=== PATIENT | male | born 1945 | race Caucasian/White ===

== ENCOUNTER 2017-05-06 10:41 | Emergency (ER) | payer BC ==
[2017-05-06 13:12] LABS: Hematocrit 42 % (42-52); Mean Corpuscular HGB Conc 34 g/dl (31-36); Mean Corpuscular Hemoglobin 31 pg (27-31); Mean Corpuscular Volume 93 fL (80-94); Mean Platelet Volume 7 um3 (7.4-10.4); Platelet Count 169 10^3/ul (150-450); Red Blood Count 4.49 10^6/ul (4.0-5.4); Red Cell Distribution Width 14 % (10.5-15); White Blood Count 5.1 10^3/ul (3.5-10.8)
[2017-05-06 13:16] LABS: ABS Basophils 0 10^3/ul (0-0.2); ABS Eosinophils 0.1 10^3/ul (0-0.6); ABS Lymphocytes 0.8 10^3/ul (1.0-4.8); ABS Monocytes 0.5 10^3/ul (0-0.8); ABS Neutrophils 3.6 10^3/ul (1.5-7.7); ABS Nucleated RBC 0 10^3/ul; Eosinophil % 1.4 % (0-6); Lymphocyte % 16.4 % (25-47); Nucleated Red Blood Cells % 0.1
--- NOTE | 2017-05-06 13:25 | RAD ---
HISTORY: Swelling and leg pain, left lower extremity COMPARISONS: None relevant TECHNIQUE: Multiple transverse and longitudinal ultrasound images were obtained of the left lower extremity from the level of the common femoral vein inferiorly through to the infrapopliteal veins using grayscale, color Doppler, and spectral Doppler imaging with and without compression and with augmentation. Comparison images were obtained of the contralateral common femoral vein. FINDINGS: VEINS: There is occlusive thrombus extending from the superior portion of the left femoral vein inferiorly into the popliteal vein, and into the calf veins. SOFT TISSUES: Unremarkable. OTHER FINDINGS: None. IMPRESSION: EXTENSIVE OCCLUSIVE THROMBUS OF THE DEEP VENOUS SYSTEM OF THE LEFT LOWER EXTREMITY
[2017-05-06 13:27] LABS: EGFR Non-African American 76.1 (>60); INR 1.25 (0.77-1.02)
[2017-05-06] MEDS ORDERED: Apixaban* 5 MG TAB PO SCH (14:00)
[2017-05-06 14:05] VITALS: BP 138/79
--- NOTE | 2017-05-07 10:26 | ED ---
Mary Ramon Gabriel, scribed for Pancho Yip MD on 05/06/17 at 1058 . Lower Extremity - HPI Summary HPI Summary: This patient is a 72 year old M presenting to [facility] with a chief complaint of left calf pain and swelling since yesterday. The patient rates the pain 2/10 in severity. Patient denies SOB and CP. Patient just flew in from [place] last night and was having LE pain in the airport yesterday. He wore compression stockings all yesterday and had pain on walking. Patient has had a DVT in the opposite leg 17 years ago that occurrured after surgery and traveled to his lung creating a PE and he was given Coumadin for this. Patient began taking ASA two days ago but is currently not on any blood thinners. - History of Current Complaint Chief Complaint: EDExtremityLower Stated Complaint: LEFT LEG SWOLLEN Time Seen by Provider: 05/06/17 10:52 Hx Obtained From: Patient Onset of Pain: Immediate Onset/Duration: Still Present Severity Initially: Mild Severity Currently: Mild Pain Intensity: 2 Pain Scale Used: 0-10 Numeric Timing: Constant Associated Signs And Symptoms: Positive: Swelling Aggravating Factor(s): Movement Able to Bear Weight: Yes - Allergies/Home Medications Allergies/Adverse Reactions: Allergies Allergy/AdvReac Type Severity Reaction Status Date / Time No Known Allergies Allergy Verified 01/18/17 09:54 PMH/Surg Hx/FS Hx/Imm Hx Endocrine/Hematology History: Denies: Hx Diabetes Cardiovascular History: Reports: Hx Deep Vein Thrombosis, Other Cardiovascular Problems/Disorders - PE Denies: Hx Hypertension, Hx Pacemaker/ICD History: Denies: Hx Renal Disease Musculoskeletal History: Denies: Hx Rheumatoid Arthritis, Hx Osteoporosis Sensory History: Denies: Hx Hearing Aid EENT History: Denies: Hx Deafness, Hx Hearing Problem Neurological History: Denies: Hx CVA, Hx Dementia Psychiatric History: Denies: Hx Panic Disorder - Surgical History Surgery Procedure, Year, and Place: TONSILS. PULMONARY EMBOLISM 1999 Infectious Disease History: No Infectious Disease History: Denies: Traveled Outside the [place] in Last 30 Days Review of Systems Negative: Chest Pain Negative: Shortness Of Breath Positive: Edema, Other - LE pain All Other Systems Reviewed And Are Negative: Yes Physical Exam - Summary Physical Exam Summary: VITAL SIGNS: Reviewed. GENERAL: Patient is a well-developed and nourished male who is lying comfortable in the stretcher. Patient is not in any acute respiratory distress. HEAD AND FACE: No signs of trauma. No ecchymosis, hematomas or skull depressions. No sinus tenderness. EYES: PERRLA, EOMI x 2, No injected conjunctiva, no nystagmus. EARS: Hearing grossly intact. Ear canals and tympanic membranes are within normal limits. MOUTH: Oropharynx within normal limits. NECK: Supple, trachea is midline, no adenopathy, no JVD, no carotid bruit, no c- spine tenderness, neck with full ROM. CHEST: Symmetric, no tenderness at palpation LUNGS: Clear to auscultation bilaterally. No wheezing or crackles. CVS: Regular rate and rhythm, S1 and S2 present, no murmurs or gallops appreciated. ABDOMEN: Soft, non-tender. No signs of distention. No rebound no guarding, and no masses palpated. Bowel sounds are normal. EXTREMITIES: LLE swelling and tenderness in calf, good capillary refill and good pulses NEURO: Alert and oriented x 3. No acute neurological deficits. Speech is normal and follows commands. SKIN: Dry and warm Triage Information Reviewed: Yes Vital Signs On Initial Exam: Initial Vitals Temp Pulse Resp BP Pulse Ox 98.3 F 83 20 141/93 100 05/06/17 10:46 05/06/17 10:46 05/06/17 10:46 05/06/17 10:46 05/06/17 10:46 Vital Signs Reviewed: Yes Diagnostics - Vital Signs Vital Signs Temp Pulse Resp BP Pulse Ox 05/06/17 10:46 98.3 F 83 20 141/93 100 - Laboratory Lab Results: Lab Results 05/06/17 05/06/17 05/06/17 Range/Units 12:56 12:56 12:56 WBC 5.1 (3.5-10.8) 10^3/ul RBC 4.49 (4.0-5.4) 10^6/ul Hgb 14.0 (14.0-18.0) g/dl Hct 42 (42-52) % MCV 93 (80-94) fL MCH 31 (27-31) pg MCHC 34 (31-36) g/dl RDW 14 (10.5-15) % Plt Count 169 (150-450) 10^3/ul MPV 7 L (7.4-10.4) um3 Neut % (Auto) 72.3 (38-83) % Lymph % (Auto) 16.4 L (25-47) % Franklin % (Auto) 9.4 H (1-9) % Eos % (Auto) 1.4 (0-6) % Baso % (Auto) 0.5 (0-2) % Absolute Neuts (auto) 3.6 (1.5-7.7) 10^3/ul Absolute Lymphs (auto) 0.8 L (1.0-4.8) 10^3/ul Absolute Monos (auto) 0.5 (0-0.8) 10^3/ul Absolute Eos (auto) 0.1 (0-0.6) 10^3/ul Absolute Basos (auto) 0 (0-0.2) 10^3/ul Absolute Nucleated RBC 0 10^3/ul Nucleated RBC % 0.1 INR (Anticoag Therapy) 1.25 H (0.77-1.02) Sodium 137 (133-145) mmol/L Potassium 4.1 (3.5-5.0) mmol/L Chloride 105 (101-111) mmol/L Carbon Dioxide 28 (22-32) mmol/L Anion Gap 4 (2-11) mmol/L BUN 20 (6-24) mg/dL Creatinine 0.97 (0.67-1.17) mg/dL Est GFR ( Amer) 97.8 (>60) Est GFR (Non-Af Amer) 76.1 (>60) BUN/Creatinine Ratio 20.6 H (8-20) Glucose 98 (70-100) mg/dL Calcium 8.7 (8.6-10.3) mg/dL Total Bilirubin 0.80 (0.2-1.0) mg/dL AST 15 (13-39) U/L ALT 19 (7-52) U/L Alkaline Phosphatase 61 (34-104) U/L C-Reactive Protein 109.33 H (< 5.00) mg/L Total Protein 6.2 L (6.4-8.9) g/dL Albumin 3.5 (3.2-5.2) g/dL Globulin 2.7 (2-4) g/dL Albumin/Globulin Ratio 1.3 (1-3) Result Diagrams: 01/26/18 12:56 05/06/17 12:56 Lab Statement: Any lab studies that have been ordered have been reviewed, and results considered in the medical decision making process. - Additional Comments Diagnostic Additional Comments: Venous doppler study reveals, per radiologist, EXTENSIVE OCCLUSIVE THROMBUS OF THE DEEP VENOUS SYSTEM OF THE LEFT LOWER EXTREMITY ED physician has reviewed this radiology report. Lower Extremity Course/Dx - Course Assessment/Plan: This patient is a 72 year old M presenting to [facility] with a chief complaint of left calf pain and swelling since yesterday. The patient rates the pain 2/10 in severity. Patient denies SOB and CP. Patient just flew in from [place] last night and was having LE pain in the airport yesterday. He wore compression stockings all yesterday and had pain on walking. Patient has had a DVT in the opposite leg 17 years ago that occurrured after surgery and traveled to his lung creating a PE and he was given Coumadin for this. Patient began taking ASA two days ago but is currently not on any blood thinners. Venous doppler study reveals, per radiologist, EXTENSIVE OCCLUSIVE THROMBUS OF THE DEEP VENOUS SYSTEM OF THE LEFT LOWER EXTREMITY. Test results with no significant abnormalities. Because of the positive DVT patient was placed on Eliquis. Since the patients is not having SOB or CP so I do not suspect a PE. The patient was given indications for bleeding and he understands and agrees. The patient will be discharged home and follow up PCP in 3 days, he understands and agrees - Diagnoses Differential Diagnosis/HQI/PQRI: Positive: Bursitis, Cellulitis, DVT, Sprain, Strain Provider Diagnoses: DVT (deep venous thrombosis) Discharge - Discharge Plan Condition: Stable Disposition: HOME Prescriptions: Apixaban* [Eliquis*] 10 mg PO BID #20 tab Apixaban* [Eliquis*] 5 mg PO BID #20 tab Patient Education Materials: Apixaban (By mouth), Deep Vein Thrombosis (ED) Referrals: Matthew Borges MD [Primary Care Provider] - 3 Days Additional Instructions: RETURN TO EMERGENCY DEPARTMENT FOR ANY NEW OR WORSENING SYMPTOMS The documentation as recorded by the Mary lincoln Gabriel accurately reflects the service I personally performed and the decisions made by , Pancho Yip MD.
== END 2017-05-06 14:04 | disposition home or self-care (01) ==
LOC: ED 10:41
DX: I82.412 Acute embolism and thrombosis of left femoral vein (principal); I82.432 Acute embolism and thrombosis of left popliteal vein; I82.4Z2 Acute embolism and thrombosis of unspecified deep veins of left distal lower extremity
CPT/HCPCS: 36415; 80053; 85025; 85610; 86140; 99282

== ENCOUNTER 2019-05-23 20:26 | Emergency (ER) | payer BC, OTHER ==
--- OUTSIDE RECORDS SUMMARY | 2019-05-23 20:31 | XMS REPORT | Continuity of Care Document ---
:1945 External Reference #:[id number] Author Name Kalpesh Gaston M.D. Address [address] [place] [address] Care Team Providers Name Role Phone Matthew Borges M.D. 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 Onset: 10/24/2014 Mild / Early Stage Glaucoma Opal Perez O.D. Onset: 10/24/2014 Vitreous degeneration Opal Perez O.D. Onset: 05/05/2015 Bilateral primary open angle glaucoma Opal Perez O.D. Onset: 05/07/2016 Nuclear senile cataract Opal Perez O.D. Onset: 05/07/2016 Myopia Opal Perez O.D. Onset: 11/05/2016 Presbyopia Opal Perez O.D. Onset: 11/05/2016 Regular astigmatism Opal Perez O.D. Onset: 11/05/2016 Injury of conjunctiva and corneal abrasion Sigrid Cobb O.D. Onset: without foreign body, unspecified eye, initial encounter Injury of conjunctiva and corneal abrasion Sigrid Cobb O.D. Onset: without foreign body, left eye, subsequent encounter Deep venous thrombosis Onset: Social History Type Date Description Comments Sex Unknown ETOH Use Occasionally consumes alcohol Tobacco Use Start: Unknown Patient has never smoked Recreational Drug Use Denies Drug Use Smoking Status Reviewed: 04/02/19 Patient has never smoked Allergies, Adverse Reactions, Alerts Active Allergies Reaction Severity Comments Date Seasonal 08/30/2018 Medications Active Medications SIG Qnty Indications Ordering Provider Date Travatan Z 1 drop both 10units Opal Perez, 03/11/2017 0.004% eyes every O.D. Solution night Zolpidem Tartrate ErnaimaMatthew jordan 10mg M.D. Tablets Viagra Breiman, Matthew 100mg Tablets M.D. Vitamin D 1 by mouth Unknown (Cholecalciferol) twice a day 1000Unit Tablets Claritin Unknown 5mg Chewtabs Eliquis BreimanMatthew 5mg Tablets M.D. Immunizations Description No Information Available Vital Signs Description No Information Available Results Description No Information Available Procedures Date Code Description Status 02/28/2019 32502 Visual Field Exam Extended Completed 02/28/2019 01055 Est Patient Intermediate Exam Completed Medical Devices Description No Information Available Encounters Description No Information Available Assessments Date Code Description Provider 04/02/2019 H40.1131 Primary open-angle glaucoma, bilateral, Kalepsh Gaston M.D. mild stage 02/28/2019 H40.1131 Primary open-angle glaucoma, bilateral, Opal Perez O.D. mild stage Plan of Treatment 04/02/2019 - Kalpesh Gaston M.D.H40.1131 Primary open-angle glaucoma, bilateral, mild stageComments:Smoking can increase the risk of developing or worsening any eye related disease, as well as affect your overall health. If you are a smoker, we strongly recommend that you quit.If you are not a smoker, we strongly recommend that you do not start. Your glaucoma is stable at this time.Your eye pressure is within an acceptable range, and your testing does not show any further deterioration at this time. Please continue your treatment.Follow up:3 Month Follow Up IOP CHECK At your next visit, we are not planning to dilate your eyes. However, if you have any changes in your vision or new symptoms, there are certain situations that require us to dilate your eyes. If Dr. Zablocki requests any additional testing, that may require extra time. If you have any questions before your next appointment, please call our office at . Functional Status Description No Information Available Mental Status Description No Information Available Referrals Description No Information Available
[2019-05-23 20:43] VITALS: BP 157/79
--- NOTE | 2019-05-23 21:28 | UC ---
Laceration HPI - HPI Summary HPI Summary: 74 yo who partially avulsed the distal fingertip of his left thumb using a box truck washer last night. Bleeding has stopped, but he came for assessment due to family's concern. Takes apixiban due to hx of DVT. Believes tetanus is up to date. - History Of Current Complaint Chief Complaint: UCUpperExtremity Stated Complaint: FINGER INJURY Time Seen by Provider: 05/23/19 21:09 Hx Obtained From: Patient Laceration Location: Finger Mechanism Of Injury: Sharp Trauma Onset/Duration: Sudden Onset Severity: Mild Pain Intensity: 0 Aggravating Factors: Movement Related History: Dominant Hand Right - Allergies/Home Medications Allergies/Adverse Reactions: Allergies Allergy/AdvReac Type Severity Reaction Status Date / Time No Known Allergies Allergy Verified 05/23/19 20:43 PMH/Surg Hx/FS Hx/Imm Hx Previously Healthy: Yes Cardiovascular History: Deep Vein Thrombosis Other History Of: Anticoagulant Therapy - Surgical History Surgical History: Yes Surgery Procedure, Year, and Place: TONSILS - Family History Known Family History: Positive: Non-Contributory - Social History Occupation: Employed Part-time Alcohol Use: None Substance Use Type: None Smoking Status (MU): Never Smoked Tobacco - Immunization History Most Recent Tetanus Shot: unknown Review of Systems All Other Systems Reviewed And Are Negative: Yes Constitutional: Positive: Negative Skin: Positive: Negative Eyes: Positive: Negative ENT: Positive: Negative Respiratory: Positive: Negative Cardiovascular: Positive: Negative Gastrointestinal: Positive: Negative Is Patient Immunocompromised?: No Physical Exam Triage Information Reviewed: Yes Appearance: Well-Appearing, No Pain Distress Vital Signs: Initial Vital Signs Temp 97.6 F 05/23/19 20:38 Pulse 74 05/23/19 20:38 Resp 16 05/23/19 20:38 BP 157/79 05/23/19 20:38 Pulse Ox 98 05/23/19 20:38 ENT: Positive: Normal ENT inspection Respiratory Exam: Normal Cardiovascular Exam: Normal, Other - blood pressure elevated above his normal Psychological Exam: Normal Skin Exam: Other - irregular avulsion of 2 patches of skin from medial border. Removed small flap of skin from 3 x 2 mm area, with second small open area of 2 x 2 mm. No active bleeding, no drainage, no erythema to suggest infection. Laceration Course/Dx - Course/Dx Course Of Treatment: wound cleansed, irrigated, and dressed. - Differential Dx - Laceration/Wound Differental Diagnoses: Avulsion - Diagnosis Provider Diagnosis: Avulsion of skin of left thumb Discharge ED - Sign-Out/Discharge Documenting (check all that apply): Patient Departure All imaging exams completed and their final reports reviewed: No Studies - Discharge Plan Condition: Stable Disposition: HOME Patient Education Materials: Skin Avulsion (ED) Referrals: Matthew Borges MD [Primary Care Provider] - Additional Instructions: Please confirm your tetanus status with Dr. Borges tomorrow. Although this wound is low risk for tetanus, booster can be considered depending on the date of the last injection. Keep the wound clean and dry, and once you remove the finger dressing tomorrow evening, you can continue a light application of topical antibiotic ointment. Follow up if there is increasing pain or redness to suggest infection. - Billing Disposition and Condition Condition: STABLE Disposition: Home
== END 2019-05-23 21:38 | disposition home or self-care (01) ==
LOC: UCEAST 20:26
DX: S61.002A Unspecified open wound of left thumb without damage to nail, initial encounter (principal); W26.0XXA Contact with knife, initial encounter; Y92.9 Unspecified place or not applicable; I82.409 Acute embolism and thrombosis of unspecified deep veins of unspecified lower extremity; Z79.01 Long term (current) use of anticoagulants
CPT/HCPCS: 99212; G0463